=== PATIENT | female | born 1965 | race Caucasian/White ===

== ENCOUNTER 2020-04-09 17:57 | Emergency (ER) | payer BC ==
[~2020-04-09] VITALS: Ht 154.9 cm; Wt 63.5 kg
[2020-04-09] MEDS ORDERED: AUGMENTIN 875-1 EACH PO (18:52)
== END 2020-04-09 18:56 | disposition home or self-care (01) ==
LOC: ER 18:42
DX: S01.112A Laceration without foreign body of left eyelid and periocular area, initial encounter (principal); S05.02XA Injury of conjunctiva and corneal abrasion without foreign body, left eye, initial encounter; S01.432A Puncture wound without foreign body of left cheek and temporomandibular area, initial encounter; W54.0XXA Bitten by dog, initial encounter; E78.5 Hyperlipidemia, unspecified
CPT/HCPCS: 99282